=== PATIENT | female | born 1960 ===

== ENCOUNTER 2018-11-20 09:49 | Outpatient (CLI) | payer OTHER, BC ==
--- NOTE | 2018-11-20 13:06 | Diagnostic Imaging Report ---
Indication: Pelvic pain and cramping, history of vaginal hysterectomy Technique: Transabdominal and transvaginal images. Doppler interrogation of the ovaries Comparison: none Findings: The uterus is not visualized, consistent with stated clinical history of prior hysterectomy. Left ovary equivocally demonstrated, measures 2.6 cm, demonstrates normal Doppler flow. The right ovary cannot be visualized. No adnexal mass demonstrated. No free cul-de-sac fluid Impression: Surgically absent uterus. Nonvisualization of the right ovary. Equivocal visualization of normal left ovary Negative for adnexal mass or free cul-de-sac fluid
== END 2018-11-20 11:49 | disposition home or self-care (01) ==
LOC: ULS 09:49
DX: R10.2 Pelvic and perineal pain (principal); Z90.710 Acquired absence of both cervix and uterus
CPT/HCPCS: 76830; 76856